=== PATIENT | female | born 1945 | race Caucasian/White ===

== ENCOUNTER 2023-06-13 10:13 | Emergency (ER) | payer MEDICARE, SELFPAY ==
[2023-06-13 10:18] VITALS: BP 194/72; PULSE 89; RESP 18; TEMP 36.7; O2SAT 97; BMI 24.0
--- NOTE | 2023-06-13 10:45 | ED.FEMALEGU ---
HPI - Female Genitourinary General Time Seen by Provider: 10:45 Date Seen: 06/13/23 Chief complaint: Urogenital Problems, Female Stated complaint: blood in urine,vaginal bleeding Time Seen by Provider: 06/13/23 10:22 Source: patient and RN notes reviewed Mode of arrival: ambulatory Limitations: no limitations History of Present Illness HPI Narrative: This 78-year-old female is coming into the ER with concern of possible blood in your urine, blood with wiping and now spotting needing to wear a pad. She is unclear if this is urinary or vaginal. She is not had a hysterectomy per report. She is obviously postmenopausal. She has had no prior episodes of this. For weeks now she is noted blood with wiping after urination. Since Monday, today is Monday, has started to have to wear a pad as she is having some spotting. She is feeling some lower abdominal discomfort like menstrual discomfort. She has had no fevers chills, has not noted any weight loss. Related Data Home Medications Medication Instructions Recorded Confirmed levothyroxine 50 mcg tablet 50 mcg PO DAILY 06/13/23 06/13/23 lisinopril 10 mg tablet 15 mg PO DAILY 06/13/23 06/13/23 metformin 1,000 mg tablet 1,000 mg PO BID 06/13/23 06/13/23 pravastatin 20 mg tablet 20 mg PO DAILY 06/13/23 06/13/23 Allergies Allergy/AdvReac Type Severity Reaction Status Date / Time No Known Drug Allergies Allergy Verified 06/13/23 10:21 Review of Systems Status of ROS: Reports: 6 or more systems reviewed and unremarkable except as noted in History and below PFSH PFSH Social History Non-prescribed substance use: denies use Exam Const: Vital Signs, click to edit/add: Vital Signs - 24 hr 06/13/23 10:18 Temperature 98.1 F Pulse Rate [Right Pulse Oximeter] 89 Respiratory Rate 18 Blood Pressure [Ri ght Upper Arm] 194/72 H Pulse Oximetry 97 Oxygen Delivery Me thod Room Air This 78-year-old female is ambulatory into the ED of her own accord, gait normal. Sclera clear, conjugate gaze, symmetrical facial function. Neck supple, no adenopathy, no thyromegaly masses or nodules. Lungs are clear, good air entry, no wheezing or crackles. CV regular rate and rhythm, no murmur, normal S1 and S2. Abdomen is soft, bowel sounds present. I do not feel any organomegaly. She has some mild discomfort in the suprapubic area. She has atrophic external genitalia without any visible signs of trauma or bleeding. There is no inguinal adenopathy. Bimanual exam reveals nontender cervix, uterus seems to be retroverted, do not appreciate enlargement but difficult to palpate. Do not feel any pelvic masses. On withdrawal of the gloved finger, note no blood. Documenting provider has reviewed patient's vital signs: yes Course Course ED Course: This 78-year-old female and I reviewed that it is important to differentiate urinary from vaginal. With the spotting I do wonder if this is vaginal. Will start with a pelvic ultrasound, may consider CT imaging as well. We will get basic lab work. We have discussed postmenopausal bleeding can be a warning sign of uterine cancer. We will make sure her hemoglobin is stable. Nursing staff has collected urinalysis. Reevaluation(s) Time of Reevaluation #1: 12:22 Reevaluation #1: Have reviewed ultrasound report with patient. She understands that she needs to proceed with endometrial biopsy in we do have a subsequent appointment set up for her. We reviewed labs, not anemic. No evidence of any significant hematuria that we need to do any visualization of the urinary system. Consultations Consultation #1: Reviewed with Dr. Springer. They can see this patient for a biopsy, we will get patient information or get her scheduled with them. Time: 11:51 Vital Signs Vital signs: Initial Vital Signs Temperature 98.1 F 06/13/23 10:18 Temperature Source Temporal Artery Scan 06/13/23 10:18 Pulse Rate 89 06/13/23 10:18 Respiratory Rate 18 06/13/23 10:18 Blood Pressure 194/72 H 06/13/23 10:18 Blood Pressure Mean 112 H 06/13/23 10:18 Blood Pressure Position Sitting 06/13/23 10:18 Pulse Oximetry 97 06/13/23 10:18 Oxygen Delivery Method Room Air 06/13/23 10:18 Vital Signs Temperature 98.1 F 06/13/23 10:18 Pulse Rate 89 06/13/23 10:18 Respiratory Rate 18 06/13/23 10:18 Blood Pressure 194/72 H 06/13/23 10:18 Pulse Oximetry 97 06/13/23 10:18 Oxygen Delivery Method Room Air 06/13/23 10:18 Temperature 98.1 F 06/13/23 10:18 Pulse Rate 89 06/13/23 10:18 Respiratory Rate 18 06/13/23 10:18 Blood Pressure 194/72 H 06/13/23 10:18 Pulse Oximetry 97 06/13/23 10:18 Oxygen Delivery Method Room Air 06/13/23 10:18 MDM - Female Genitourinary Lab Data Attestation: I reviewed the patient's lab results. Labs: Lab Results 06/13/23 06/13/23 Range/Units 10:37 10:57 WBC 7.65 (4.50-11.00) K/uL RBC 4.01 (4.00-5.20) m/uL Hgb 13.8 (12.0-16.0) gm/dL Hct 41.1 (33.0-51.0) % MCV 103 H (80-100) fL MCH 34 (26-34) pg MCHC 34 (32-36) gm/dL RDW Coeff of Yoav 13.0 (11.5-15.5) % Plt Count 258 (140-440) K/uL Neut % (Auto) 75.7 H (42.0-72.0) % Lymph % (Auto) 18.0 L (20-44) % [place] % (Auto) 4.4 (0.0-11.0) % Eos % (Auto) 1.0 (0.0-7.0) % Baso % (Auto) 0.5 (0.0-3.0) % Neut # (Auto) 5.80 (1.7-7.0) K/uL Lymph # (Auto) 1.40 (0.90-2.90) K/uL [place] # (Auto) 0.30 (0.00-0.90) K/UL Eos # (Auto) 0.08 (0.00-0.50) K/uL Baso # (Auto) 0.04 (0.00-0.30) K/uL Abs Immat Gran (auto) 0.03 (0.00-0.30) K/uL Imm/Tot Granulo (auto) 0.4 % Sodium 139 (135-149) mmol/L Potassium 4.5 (3.6-5.1) mmol/L Chloride 104 (96-114) mmol/L Carbon Dioxide 25 (20-32) mmol/L Anion Gap 10 (7-15) mEq/L BUN 18 (7-30) mg/dL Creatinine 0.8 (0.5-1.5) mg/dL Estimated Creat Clear 39.39 Estimated GFR 75 ml/min Glucose 217 H (60-115) mg/dL Calcium 9.8 (8.4-10.6) mg/dL Total Bilirubin 0.6 (0.1-1.5) mg/dL AST 46 H (12-35) U/L ALT 45 H (4-35) U/L Alkaline Phosphatase 58 (40-150) U/L Total Protein 7.7 (6.0-8.3) g/dL Albumin 4.7 (3.3-5.0) g/dL Urine Color Yellow (Yellow) Urine Appearance Clear (Clear) Urine pH 5.5 (5.0-8.5) Ur Specific [place] <= 1.005 (1.000-1.030) Urine Protein Negative (Negative) Urine Glucose (UA) Negative (Negative) Urine Ketones Negative (Negative) Urine Blood 2+ A (Negative) Urine Nitrite Negative (Negative) Urine Bilirubin Negative (Negative) Urine Urobilinogen 0.2 (0.2-1.0) Ur Leukocyte Esterase 1+ A (Negative) Urine RBC 0-2 (0-2) Urine WBC 0-2 (0-5) Ur Squamous Epith Cells Few (None-Few) Urine Bacteria None (None) Imaging Data US pelvis: Attestation: I have reviewed the pertinent imaging results. Radiologist's impression: Patient: SEPIDEH PEREZ Facility:?[facility] Patient ID:?[id number] Site Patient ID:?[id number]. Site :?1945 Study:?US Pelvis -06/13/2023 11:27:21 AM Ordering Physician:?ED Final Report: INDICATION: Postmenopausal bleeding COMPARISON: none TECHNIQUE: 2D archibald scale and color Doppler images were acquired of the pelvis using a transabdominal and transvaginal approach. FINDINGS: Sonographic images demonstrate a normal size and smooth outer contour of the uterus. Uterus measures 8.4 cm in length by 3.7 cm in AP diameter by 4.1 cm in transverse dimension. Incidental calcification noted within the uterine fundus. The endometrial lining measures 7 mm in composite thickness. What appears to be the left ovary measures 1.4 x 0.8 x 1.0 cm. The right ovary is not visualized. No suspicious mass in the pelvis or abnormal vascularity. IMPRESSION: Endometrial thickness 7 millimeters. Dictated by Corbin Combs MD @ 06/13/2023 11:31:34 AM (Electronic Signature) Discharge Plan Discharge Clinical Impression: Post-menopausal bleeding Patient Disposition: Home, Self-Care Condition: Stable Instructions: Endometrial Biopsy (DC) Additional Instructions: Follow up appointment is scheduled at the [facility] on 06/14 with an 11:15am appointment time. Please arrive at 11:05am to check in and complete paperwork. If you have any questions or need to reschedule, please call [phone]. [address] [place] [address] If you develop heavy bleeding, going through a pad consecutively over 2-3 hours, do need to seek re-evaluation. Otherwise, it is imperative that you follow-up to have the endometrial biopsy done. Activity Level: Activity as Tolerated Prescriptions: No Action levothyroxine 50 mcg tablet 50 mcg PO DAILY metformin 1,000 mg tablet 1,000 mg PO BID lisinopril 10 mg tablet 15 mg PO DAILY pravastatin 20 mg tablet 20 mg PO DAILY Follow Up/Referrals: Generic,Amb Provider [Primary Care Provider] - Stand Alone Forms: [employer] Info Instructions
[2023-06-13 10:46] LABS: Appearance Urine Clear (Clear); Bilirubin Urine Negative (Negative); Blood Urine 2+ (Negative); Color Urine Yellow (Yellow); Glucose Urine Negative (Negative); Ketones Urine Negative (Negative); Leukocyte Esterase Urine 1+ (Negative); Nitrite Urine Negative (Negative); Protein Urine Negative (Negative); Specific Gravity Urine <= 1.005 (1.000-1.030); Urobilinogen Urine 0.2 (0.2-1.0); pH Urine 5.5 (5.0-8.5)
--- NOTE | 2023-06-13 10:51 | US_ITS ---
Patient: SEPIDEH PEREZ Facility:?[facility] Patient ID:?[id number] Site Patient ID:?[id number]. Site :?1945 Study:?US-Pelvis -06/13/2023 11:27:21 AM Ordering Physician:?ED Final Report: INDICATION: Postmenopausal bleeding COMPARISON: none TECHNIQUE: 2D archibald scale and color Doppler images were acquired of the pelvis using a transabdominal and transvaginal approach. FINDINGS: Sonographic images demonstrate a normal size and smooth outer contour of the uterus. Uterus measures 8.4 cm in length by 3.7 cm in AP diameter by 4.1 cm in transverse dimension. Incidental calcification noted within the uterine fundus. The endometrial lining measures 7 mm in composite thickness. What appears to be the left ovary measures 1.4 x 0.8 x 1.0 cm. The right ovary is not visualized. No suspicious mass in the pelvis or abnormal vascularity. IMPRESSION: Endometrial thickness 7 millimeters. Dictated by Corbin Combs MD @ 06/13/2023 11:31:34 AM Signed by:?Corbin Combs MD @06/13/2023 11:31:34 AM (Electronic Signature)
[2023-06-13 11:07] LABS: RBC Urine 0-2 (0-2); WBC Urine 0-2 (0-5)
[2023-06-13 11:08] LABS: Basophils Absolute Auto 0.04 K/uL (0.00-0.30); Basophils Percent Auto 0.5 % (0.0-3.0); Eosinophils Absolute Auto 0.08 K/uL (0.00-0.50); Hematocrit 41.1 % (33.0-51.0); Hemoglobin* 13.8 gm/dL (12.0-16.0); Immature Granulocytes Abs Auto 0.03 K/uL (0.00-0.30); Immature Granulocytes Pct Auto 0.4 %; Mean Corpuscular HGB Conc 34 gm/dL (32-36); Mean Corpuscular Hemoglobin 34 pg (26-34); Mean Corpuscular Volume 103 fL (80-100); Monocytes Percent Auto 4.4 % (0.0-11.0); Neutrophils Percent Auto 75.7 % (42.0-72.0); Platelet Count* 258 K/uL (140-440); Red Blood Count 4.01 m/uL (4.00-5.20); White Blood Count* 7.65 K/uL (4.50-11.00)
[2023-06-13 11:08] LABS: Squamous Epithelial Cell Urine Few (None-Few)
[2023-06-13 11:33] LABS: Albumin* 4.7 g/dL (3.3-5.0); Chloride* 104 mmol/L (96-114); Potassium* 4.5 mmol/L (3.6-5.1); Sodium* 139 mmol/L (135-149)
[2023-06-13 11:35] LABS: Anion Gap 10 mEq/L (7-15); Bilirubin Total* 0.6 mg/dL (0.1-1.5); Carbon Dioxide* 25 mmol/L (20-32); Creatinine* 0.8 mg/dL (0.5-1.5); Est. Creatinine Clearance* 39.39; Estimated Glomerular Filt Rate 75 ml/min
[2023-06-13 11:36] LABS: Alanine Aminotransferase* 45 U/L (4-35); Alkaline Phosphatase* 58 U/L (40-150); Aspartate Amino Transferase* 46 U/L (12-35); Blood Urea Nitrogen* 18 mg/dL (7-30); Calcium* 9.8 mg/dL (8.4-10.6); Glucose* 217 mg/dL (60-115); Total Protein* 7.7 g/dL (6.0-8.3)
[2023-06-13 11:41] LABS: Slide Review Reflex No
== END 2023-06-13 12:46 | disposition home or self-care (01) ==
PROVIDERS: Emergency Provider Family Medicine
DX: N95.0 Postmenopausal bleeding (principal); R31.9 Hematuria, unspecified; Z13.6 Encounter for screening for cardiovascular disorders
CPT/HCPCS: 36415; 76856; 80053; 81001; 85025; 87086; 93976; 99283; 99284

== ENCOUNTER 2023-07-06 08:42 | Outpatient (CLI) | payer MEDICARE, SELFPAY ==
--- NOTE | 2023-07-06 09:00 | XR_ITS ---
Patient: SEPIDEH PEREZ Facility:?[facility] Patient ID:?[id number] Site Patient ID:?[id number]. Site :?1945 Study:?XRay-Chest 2 view-07/06/2023 9:01:27 AM Ordering Physician:Jessica Almanzar Final Report: INDICATION: Endometrial cancer TECHNIQUE: Chest 2 views COMPARISON: None FINDINGS: Cardiovascular and mediastinum: Heart size and vasculature are normal in caliber and appearance. Lungs and pleural spaces: Lungs are clear. No sign of infiltrate or mass. No sign of pleural effusion. No pneumothorax. Bones and soft tissues: No significant findings. IMPRESSION: Normal chest films. Dictated by Corbin Combs MD @ 07/06/2023 11:14:41 AM Signed by:?Corbin Combs MD @07/06/2023 11:14:41 AM (Electronic Signature)
== END 2023-07-06 08:43 | disposition home or self-care (01) ==
PROVIDERS: Visit Provider Registered Nurse
DX: C54.1 Malignant neoplasm of endometrium (principal)
CPT/HCPCS: 71046

== ENCOUNTER 2023-10-09 14:19 | Emergency (ER) | payer MEDICARE, SELFPAY ==
[2023-10-09] VITALS (8 sets, daily range): BP systolic 110–148; BP diastolic 76–92; PULSE 104–113; RESP 14–18; TEMP 36.9; O2SAT 94–98; BMI 24.1
--- NOTE | 2023-10-09 15:38 | ED.GENADULT ---
HPI - General Adult General Time Seen by Provider: 15:38 <Anne Marie Recio MD - Last Filed: 10/10/23 08:55> Date Seen: 10/09/23 <Anne Marie Recio MD - Last Filed: 10/10/23 08:55> Chief complaint: Unspecified Complaint, Adult <Anne Marie Recio MD - Last Filed: 10/10/23 08:55> Stated complaint: blood clot in lung <Anne Marie Recio MD - Last Filed: 10/10/23 08:55> Time Seen by Provider: 10/09/23 15:37 <Anne Marie Recio MD - Last Filed: 10/10/23 08:55> Source: patient, RN notes reviewed and old records reviewed <Anne Marie Recio MD - Last Filed: 10/10/23 08:55> Mode of arrival: ambulatory <Anne Marie Recio MD - Last Filed: 10/10/23 08:55> Limitations: no limitations <Anne Marie Recio MD - Last Filed: 10/10/23 08:55> History of Present Illness HPI narrative: this 78-year-old female was told to come in [facility] after she had an outpatient CT showing large clot burden pulmonary embolism with a saddle component. There are findings of right heart strain is evidence by an elevated RV/ LV ratio 1.5 and leftward deviation of the interventricular septum. Right middle lobe opacity probably a small pulmonary infarct. Minimal basilar atelectasis. Very small right effusion. Postoperative changes related to the left breast and left axilla. atrophic right kidney with her renal cortical scarring. She notes that she developed a little irritative cough about a week or so ago, did not respond to cold medicine. She started noticing dyspnea on exertion. She admits she has chest pressure right now. Patient states that she was at home alone, staff was attempting to get a hold of her . They were finally successful in getting him home and she was brought to the ER. She She states she was never advised to consider calling 911 with these findings. Our staff here were completely unaware of the severity of her pulmonary embolism. I was able to get in to the epic chart and print report out. Once I was able to read this report, I did alert our ED staff on the severity of her pulmonary embolus. <Anne Marie Recio MD - Last Filed: 10/10/23 08:55> Related Data Home medications: Home Medications ?Medication ?Instructions ?Recorded ?Confirmed levothyroxine 50 mcg tablet 50 mcg PO DAILY 06/13/23 06/15/23 lisinopril 10 mg tablet 15 mg PO DAILY 06/13/23 06/15/23 metformin 1,000 mg tablet 1,000 mg PO BID 06/13/23 06/15/23 pravastatin 20 mg tablet 20 mg PO DAILY 06/13/23 06/15/23 aspirin 81 mg tablet,delayed 81 mg PO QDAY 06/15/23 06/15/23 release multivitamin (Daily Multi-Vitamin 1 tab PO QAM 06/15/23 06/15/23 tablet) <Anne Marie Recio MD - Last Filed: 10/10/23 08:55> Allergies/adverse reactions: Allergies Allergy/AdvReac Type Severity Reaction Status Date / Time No Known Drug Allergies Allergy Verified 06/15/23 10:32 <Anne Marie Recio MD - Last Filed: 10/10/23 08:55> Review of Systems Status of ROS: Reports: 6 or more systems reviewed and unremarkable except as noted in History and below <Anne Marie Recio MD - Last Filed: 10/10/23 08:55> [facility] Medical History: Medical History (Updated 10/09/23 @ 17:11 by Alexis Fragoso MD) Hypothyroid ?E03.9 - Hypothyroidism, unspecified (ICD-10) Type 2 diabetes mellitus ?E11.9 - Type 2 diabetes mellitus without complications (ICD-10) Postmenopausal bleeding ?N95.0 - Postmenopausal bleeding (ICD-10) Endometrial carcinoma ?C54.1 - Malignant neoplasm of endometrium (ICD-10) Breast cancer ?C50.919 - Malignant neoplasm of unspecified site of unspecified female breast (ICD-10) <Anne Marie Recio MD - Last Filed: 10/10/23 08:55> Surgical History: Surgical History (Updated 10/09/23 @ 15:51 by Anne Marie Recio MD) H/O total hysterectomy with bilateral salpingo-oophorectomy (BSO) ?Z90.710 - Acquired absence of both cervix and uterus (ICD-10) ?Z90.722 - Acquired absence of ovaries, bilateral (ICD-10) ?Z90.79 - Acquired absence of other genital organ(s) (ICD-10) H/O knee surgery ?Z98.890 - Other specified postprocedural states (ICD-10) History of appendectomy ?Z90.49 - Acquired absence of other specified parts of digestive tract (ICD-10) <Anne Marie Recio MD - Last Filed: 10/10/23 08:55> Family History: Family History Mother Heart disease Stroke Sister Heart disease Stroke <Anne Marie Recio MD - Last Filed: 10/10/23 08:55> Social History: Social History Narrative: [place] [facility]. Retired in 2009. Completed high school. . Not sexually active. Smoking Status: Smoker, status unknown Non-prescribed substance use: denies use <Anne Marie Recio MD - Last Filed: 10/10/23 08:55> Exam Const: Vital Signs, click to edit/add: Vital Signs - 24 hr 10/09/23 14:32 10/09/23 15:38 10/09/23 15:41 Temperature 98.4 F Pulse Rate 112 H Pulse Rate [Right Pulse Oximeter] 113 H Respiratory Rate 18 16 Blood Pressure 138/91 H Blood Pressure [Ri ght Upper Arm] 147/83 H Pulse Oximetry 97 98 98 Oxygen Delivery Me thod Room Air 10/09/23 16:01 10/09/23 16:31 10/09/23 17:01 Temperature Pulse Rate 106 H 107 H 104 H Pulse Rate [Right Pulse Oximeter] Respiratory Rate 14 18 16 Blood Pressure 110/76 148/81 H 117/83 Blood Pressure [Ri ght Upper Arm] Pulse Oximetry 94 95 95 Oxygen Delivery Me thod 10/09/23 17:31 10/09/23 17:38 Temperature 98.4 F Pulse Rate 106 H Pulse Rate [Right Pulse Oximeter] Respiratory Rate 14 14 Blood Pressure 111/92 H Blood Pressure [Ri ght Upper Arm] Pulse Oximetry 98 Oxygen Delivery Me thod Room Air This is a very pleasant 78-year-old female that is seen in exam room 4. She is alert, interactive, no apparent distress. Able to speak in complete sentences. Sclera clear, face atraumatic, symmetrical facial function. Lungs are clear, good air entry, wheezing crackles. CV is regular but fast, no murmur, normal S1-S2, no S3-S4. Abdomen is soft. She has no lower extremity edema, calves are nontender. Patient was ambulatory into the ED of her own accord. <Anne Marie Recio MD - Last Filed: 10/10/23 08:55> Vital Signs, click to edit/add: Vital Signs - 24 hr 10/09/23 14:32 10/09/23 15:38 10/09/23 15:41 Temperature 98.4 F Pulse Rate 112 H Pulse Rate [Right Pulse Oximeter] 113 H Respiratory Rate 18 16 Blood Pressure 138/91 H Blood Pressure [Ri ght Upper Arm] 147/83 H Pulse Oximetry 97 98 98 Oxygen Delivery Me thod Room Air 10/09/23 16:01 10/09/23 16:31 10/09/23 17:01 Temperature Pulse Rate 106 H 107 H 104 H Pulse Rate [Right Pulse Oximeter] Respiratory Rate 14 18 16 Blood Pressure 110/76 148/81 H 117/83 Blood Pressure [Ri ght Upper Arm] Pulse Oximetry 94 95 95 Oxygen Delivery Me thod 10/09/23 17:31 10/09/23 17:38 Temperature 98.4 F Pulse Rate 106 H Pulse Rate [Right Pulse Oximeter] Respiratory Rate 14 14 Blood Pressure 111/92 H Blood Pressure [Ri ght Upper Arm] Pulse Oximetry 98 Oxygen Delivery Me thod Room Air <Alexis Fragoso MD - Last Filed: 10/09/23 18:19> Documenting provider has reviewed patient's vital signs: yes <Anne Marie Recio MD - Last Filed: 10/10/23 08:55> Course Course ED Course: with this CT report, patient is going to get the PE heparin protocol. We will get appropriate labs. She will get an EKG, be on cardiac monitoring and pulse oximetry. I will contact the director of occupational health at [facility] or the PE team at an appropriate institution. <Anne Marie Recio MD - Last Filed: 10/10/23 08:55> Reevaluation(s) Time of Reevaluation #1: 16:22 <Anne Marie Recio MD - Last Filed: 10/10/23 08:55> Reevaluation #1: Patient is on her IV heparin. She understands that she will be going to the unit at [facility], plan will be for a suction thrombectomy. She thought that they might have to open her chest, reviewed that this is not the case. We reviewed how they go in through vascular access. She was happy to hear that. She wanted to know how long she might be in the hospital. Reviewed with her that I do not know that information. She remains hemodynamically stable. Awaiting her labs. Awaiting her bilateral lower extremity ultrasound. We will not hold patient here to have the ultrasound done if she is able to transfer. <Anne Marie Recio MD - Last Filed: 10/10/23 08:55> Time of Reevaluation #2: 17:40 <Alexis Fragoso MD - Last Filed: 10/09/23 18:19> Reevaluation #2: Bilateral lower extremity ultrasound with extensive bilateral DVT. Called [facility] transfer center to message accepting provider about this result. No change in treatment at this point but may need to consider IVC filter. Patient otherwise remained stable. <Alexis Fragoso MD - Last Filed: 10/09/23 18:19> Consultations Consultation #1: Did speak with the ICU physician Dr. Johnson. He is able to pull up the imaging. They did conference in Dr. Sanchez. While we were talking, I did pull up her medical records. She had a lumpectomy and MediPort placement, lumpectomy on the left on 09/20/2023. She had a hysterectomy on 08/31/2023. They did not want her to have lytics given the hysterectomy. He was not is worried about the lumpectomy or the MediPort But they hysterectomy certainly could pose complications. There where that I do have her on IV heparin protocol for PE. They do want her to come up for offering of suction thrombectomy. Dr. Johnson is accepting her to the ICU. We will await call from staff at [facility] with bed acceptance. Will continue to complete workup, have ordered bilateral venous ultrasound and will see if we can get this done prior to her transfer. Will not villegas here to await this imaging however. <Anne Marie Recio MD - Last Filed: 10/10/23 08:55> Time: 15:54 <Anne Marie Recio MD - Last Filed: 10/10/23 08:55> Vital Signs Vital signs: Initial Vital Signs Temperature 98.4 F 10/09/23 14:32 Temperature Source Temporal Artery Scan 10/09/23 14:32 Pulse Rate 113 H 10/09/23 14:32 Respiratory Rate 18 10/09/23 14:32 Blood Pressure 147/83 H 10/09/23 14:32 Blood Pressure Mean 104 10/09/23 14:32 Blood Pressure Position Sitting 10/09/23 14:32 Pulse Oximetry 97 10/09/23 14:32 Oxygen Delivery Method Room Air 10/09/23 14:32 Vital Signs Temperature 98.4 F 10/09/23 14:32 Pulse Rate 113 H 10/09/23 14:32 Respiratory Rate 18 10/09/23 14:32 Blood Pressure 147/83 H 10/09/23 14:32 Pulse Oximetry 97 10/09/23 14:32 Oxygen Delivery Method Room Air 10/09/23 14:32 Temperature 98.4 F 10/09/23 17:38 Pulse Rate 106 H 10/09/23 17:31 Respiratory Rate 14 10/09/23 17:38 Blood Pressure 111/92 H 10/09/23 17:31 Pulse Oximetry 98 10/09/23 17:31 Oxygen Delivery Method Room Air 10/09/23 17:31 <Anne Marie Recio MD - Last Filed: 10/10/23 08:55> Initial Vital Signs Temperature 98.4 F 10/09/23 14:32 Temperature Source Temporal Artery Scan 10/09/23 14:32 Pulse Rate 113 H 10/09/23 14:32 Respiratory Rate 18 10/09/23 14:32 Blood Pressure 147/83 H 10/09/23 14:32 Blood Pressure Mean 104 10/09/23 14:32 Blood Pressure Position Sitting 10/09/23 14:32 Pulse Oximetry 97 10/09/23 14:32 Oxygen Delivery Method Room Air 10/09/23 14:32 Vital Signs Temperature 98.4 F 10/09/23 14:32 Pulse Rate 113 H 10/09/23 14:32 Respiratory Rate 18 10/09/23 14:32 Blood Pressure 147/83 H 10/09/23 14:32 Pulse Oximetry 97 10/09/23 14:32 Oxygen Delivery Method Room Air 10/09/23 14:32 Temperature 98.4 F 10/09/23 17:38 Pulse Rate 106 H 10/09/23 17:31 Respiratory Rate 14 10/09/23 17:38 Blood Pressure 111/92 H 10/09/23 17:31 Pulse Oximetry 98 10/09/23 17:31 Oxygen Delivery Method Room Air 10/09/23 17:31 <Alexis Fragoso MD - Last Filed: 10/09/23 18:19> Medications Administered Medications: Discontinued Medications Generic Name Dose Route Start Last Admin Trade Name Freq PRN Reason Stop Dose Admin Heparin Sodium (Porcine) 4,900 unit 10/09/23 15:39 10/09/23 16:05 Heparin 5,000 Unit/0.5 Ml Inj 80 unit/kg (4900 unit) 10/09/23 15:40 4,900 unit IVP Administration ONCE ONE Heparin Sodium/Dextrose 25,000 unit in 500 mls @ 22 mls/hr 10/09/23 15:45 10/09/23 16:04 Heparin IV 1,100 unit/hr .[id number] ERIBERTO 22 mls/hr Administration Protocol Per Protocol <Anne Marie Recio MD - Last Filed: 10/10/23 08:55> Discontinued Medications Generic Name Dose Route Start Last Admin Trade Name Freq PRN Reason Stop Dose Admin Heparin Sodium (Porcine) 4,900 unit 10/09/23 15:39 10/09/23 16:05 Heparin 5,000 Unit/0.5 Ml Inj 80 unit/kg (4900 unit) 10/09/23 15:40 4,900 unit IVP Administration ONCE ONE Heparin Sodium/Dextrose 25,000 unit in 500 mls @ 22 mls/hr 10/09/23 15:45 10/09/23 16:04 Heparin IV 1,100 unit/hr .[id number] ERIBERTO 22 mls/hr Administration Protocol Per Protocol <Alexis Fragoso MD - Last Filed: 10/09/23 18:19> Medical Decision Making Medical Records Medical records reviewed: Yes I reviewed the patient's medical records <Anne Marie Recio MD - Last Filed: 10/10/23 08:55> Lab Data Lab results reviewed: Yes I reviewed the patient's lab results <Anne Marie Recio MD - Last Filed: 10/10/23 08:55> Labs: Lab Results 10/09/23 10/09/23 10/09/23 Range/Units 15:45 15:45 15:45 WBC 10.05 (4.50-11.00) K/uL RBC 3.72 L (4.00-5.20) m/uL Hgb 12.3 (12.0-16.0) gm/dL Hct 37.9 (33.0-51.0) % MCV 102 H (80-100) fL MCH 33 (26-34) pg MCHC 33 (32-36) gm/dL RDW Coeff of Yoav 12.5 (11.5-15.5) % Plt Count 286 (140-440) K/uL Neut % (Auto) 80.4 H (42.0-72.0) % Lymph % (Auto) 10.4 L (20-44) % Tillman % (Auto) 7.9 (0.0-11.0) % Eos % (Auto) 0.7 (0.0-7.0) % Baso % (Auto) 0.3 (0.0-3.0) % Neut # (Auto) 8.10 H (1.7-7.0) K/uL Lymph # (Auto) 1.00 (0.90-2.90) K/uL Tillman # (Auto) 0.80 (0.00-0.90) K/UL Eos # (Auto) 0.07 (0.00-0.50) K/uL Baso # (Auto) 0.03 (0.00-0.30) K/uL Abs Immat Gran (auto) 0.03 (0.00-0.30) K/uL Imm/Tot Granulo (auto) 0.3 % INR 1.05 (0.91-1.10) APTT 34 H (23-33) Seconds D-Dimer Quant (PE/DVT) Cancelled 6.24 H VBG pH 7.382 (7.32-7.43) VBG pCO2 45 (40-50) mmHG VBG pO2 < 30.1 (25-47) mmHG VBG HCO3 27 (21-28) mmol/L Sodium 136 (135-149) mmol/L Potassium 4.3 (3.6-5.1) mmol/L Chloride 103 (96-114) mmol/L Carbon Dioxide 25 (20-32) mmol/L Anion Gap 8 (7-15) mEq/L BUN 13 (7-30) mg/dL Creatinine 0.9 (0.5-1.5) mg/dL Estimated Creat Clear 37.74 Estimated GFR 65 ml/min Glucose 183 H (60-115) mg/dL Lactate Cancelled 1.1 Calcium 9.4 (8.4-10.6) mg/dL Total Bilirubin 0.9 (0.1-1.5) mg/dL AST 22 (12-35) U/L ALT 13 (4-35) U/L Alkaline Phosphatase 67 (40-150) U/L Troponin I < 0.01 L (0.01-0.04) ng/mL NT-Pro-B Natriuret Pep 1970 pg/mL Total Protein 7.5 (6.0-8.3) g/dL Albumin 4.4 (3.3-5.0) g/dL <Anne Marie Recio MD - Last Filed: 10/10/23 08:55> Lab Results 10/09/23 10/09/23 10/09/23 Range/Units 15:45 15:45 15:45 WBC 10.05 (4.50-11.00) K/uL RBC 3.72 L (4.00-5.20) m/uL Hgb 12.3 (12.0-16.0) gm/dL Hct 37.9 (33.0-51.0) % MCV 102 H (80-100) fL MCH 33 (26-34) pg MCHC 33 (32-36) gm/dL RDW Coeff of Yoav 12.5 (11.5-15.5) % Plt Count 286 (140-440) K/uL Neut % (Auto) 80.4 H (42.0-72.0) % Lymph % (Auto) 10.4 L (20-44) % Tillman % (Auto) 7.9 (0.0-11.0) % Eos % (Auto) 0.7 (0.0-7.0) % Baso % (Auto) 0.3 (0.0-3.0) % Neut # (Auto) 8.10 H (1.7-7.0) K/uL Lymph # (Auto) 1.00 (0.90-2.90) K/uL Tillman # (Auto) 0.80 (0.00-0.90) K/UL Eos # (Auto) 0.07 (0.00-0.50) K/uL Baso # (Auto) 0.03 (0.00-0.30) K/uL Abs Immat Gran (auto) 0.03 (0.00-0.30) K/uL Imm/Tot Granulo (auto) 0.3 % INR 1.05 (0.91-1.10) APTT 34 H (23-33) Seconds D-Dimer Quant (PE/DVT) Cancelled 6.24 H VBG pH 7.382 (7.32-7.43) VBG pCO2 45 (40-50) mmHG VBG pO2 < 30.1 (25-47) mmHG VBG HCO3 27 (21-28) mmol/L Sodium 136 (135-149) mmol/L Potassium 4.3 (3.6-5.1) mmol/L Chloride 103 (96-114) mmol/L Carbon Dioxide 25 (20-32) mmol/L Anion Gap 8 (7-15) mEq/L BUN 13 (7-30) mg/dL Creatinine 0.9 (0.5-1.5) mg/dL Estimated Creat Clear 37.74 Estimated GFR 65 ml/min Glucose 183 H (60-115) mg/dL Lactate Cancelled 1.1 Calcium 9.4 (8.4-10.6) mg/dL Total Bilirubin 0.9 (0.1-1.5) mg/dL AST 22 (12-35) U/L ALT 13 (4-35) U/L Alkaline Phosphatase 67 (40-150) U/L Troponin I < 0.01 L (0.01-0.04) ng/mL NT-Pro-B Natriuret Pep 1970 pg/mL Total Protein 7.5 (6.0-8.3) g/dL Albumin 4.4 (3.3-5.0) g/dL <Alexis Fragoso MD - Last Filed: 10/09/23 18:19> ECG Data Attestation: I personally reviewed and interpreted this ECG as follows: ( Sinus tachycardia, 106 beats per minute. Poor R-wave progression anterior precordial leads without any definitive ST segment change or T-wave abnormality. Flipped T-waves in lead 3 and AVF but normal in lead 2.) <Anne Marie Recio MD - Last Filed: 10/10/23 08:55> Prior ECG tracings: not available for review <Anne Marie Recio MD - Last Filed: 10/10/23 08:55> Discharge Plan Discharge Clinical Impression: Acute saddle pulmonary embolism, Deep vein thrombosis (DVT) of both lower extremities <Anne Marie Recio MD - Last Filed: 10/10/23 08:55> Patient Disposition: Xfer [facility] <Anne Marie Recio MD - Last Filed: 10/10/23 08:55> Discharge Location: [facility] <Anne Marie Recio MD - Last Filed: 10/10/23 08:55> Prescriptions: No Action aspirin 81 mg tablet,delayed release (DR/EC) 81 mg PO QDAY multivitamin [Daily Multi-Vitamin] Tablet 1 tab PO QAM levothyroxine 50 mcg tablet 50 mcg PO DAILY metformin 1,000 mg tablet 1,000 mg PO BID lisinopril 10 mg tablet 15 mg PO DAILY pravastatin 20 mg tablet 20 mg PO DAILY <Anne Marie Recio MD - Last Filed: 10/10/23 08:55> Stand Alone Forms: MyHealth Info Instructions <Anne Marie Recio MD - Last Filed: 10/10/23 08:55>
[2023-10-09 15:57] LABS: HCO3 VBG 27 mmol/L (21-28); Lactate* 1.1 mmol/L (0.5-1.9); PCO2 VBG 45 mmHG (40-50); PO2 VBG < 30.1 mmHG (25-47); pH VBG 7.382 (7.32-7.43)
[2023-10-09 16:02] LABS: Basophils Absolute Auto 0.03 K/uL (0.00-0.30); Basophils Percent Auto 0.3 % (0.0-3.0); Eosinophils Absolute Auto 0.07 K/uL (0.00-0.50); Eosinophils Percent Auto 0.7 % (0.0-7.0); Hematocrit 37.9 % (33.0-51.0); Hemoglobin* 12.3 gm/dL (12.0-16.0); Immature Granulocytes Abs Auto 0.03 K/uL (0.00-0.30); Immature Granulocytes Pct Auto 0.3 %; Lymphocytes Percent Auto 10.4 % (20-44); Mean Corpuscular HGB Conc 33 gm/dL (32-36); Mean Corpuscular Hemoglobin 33 pg (26-34); Mean Corpuscular Volume 102 fL (80-100); Monocytes Percent Auto 7.9 % (0.0-11.0); Neutrophils Percent Auto 80.4 % (42.0-72.0); Platelet Count* 286 K/uL (140-440); RDW Coefficient of Variation % 12.5 % (11.5-15.5); Red Blood Count 3.72 m/uL (4.00-5.20); White Blood Count* 10.05 K/uL (4.50-11.00)
[2023-10-09 16:04] LABS: Slide Review Reflex No
[2023-10-09] MEDS: HEPARIN 25,000 UNIT/500 ML BAG 22 UNIT IV (16:04)
[2023-10-09] MEDS: HEPARIN 5,000 UNIT/0.5 ML INJ 4900 UNIT IVP (16:05)
--- NOTE | 2023-10-09 16:07 | CRLHL7_ITS ---
For Patients: As a result of the Century Cures Act, medical imaging exams and procedure reports are released immediately into your electronic medical record. You may view this report before your referring provider. If you have questions, please contact your health care provider. INDICATION: Saddle pulmonary embolus, evaluate for source TECHNIQUE: Ultrasound venous duplex lower extremity bilateral. Compression venous exam was performed using archibald-scale, color Doppler, and spectral Doppler imaging. COMPARISON: None. FINDINGS: Extensive deep venous thrombosis throughout the right lower extremity veins as well as the left lower extremity veins extending from the common femoral through the popliteal and proximal posterior tibial, peroneal veins. IMPRESSION: Extensive deep venous thrombosis within the right greater than left lower extremity veins consistent with history of recently diagnosed saddle pulmonary embolus. Findings were discussed with Dr. Serna at 5:49 p.m. October 09, 2023 Dictated by Milan Ibarra MD @ 10/09/2023 5:55:09 PM (Electronically Signed)
[2023-10-09 16:15] LABS: Albumin* 4.4 g/dL (3.3-5.0)
[2023-10-09 16:16] LABS: Chloride* 103 mmol/L (96-114); Partial Thromboplastin Time* 34 Seconds (23-33); Potassium* 4.3 mmol/L (3.6-5.1); Sodium* 136 mmol/L (135-149)
[2023-10-09 16:17] LABS: INR 1.05 (0.91-1.10); Prothrombin Time 14.4 Seconds
[2023-10-09 16:18] LABS: Anion Gap 8 mEq/L (7-15); Aspartate Amino Transferase* 22 U/L (12-35); Bilirubin Total* 0.9 mg/dL (0.1-1.5); Carbon Dioxide* 25 mmol/L (20-32); Creatinine* 0.9 mg/dL (0.5-1.5); Est. Creatinine Clearance* 37.74; Estimated Glomerular Filt Rate 65 ml/min; Total Protein* 7.5 g/dL (6.0-8.3)
[2023-10-09 16:19] LABS: Alanine Aminotransferase* 13 U/L (4-35); Alkaline Phosphatase* 67 U/L (40-150); Blood Urea Nitrogen* 13 mg/dL (7-30); Calcium* 9.4 mg/dL (8.4-10.6); Glucose* 183 mg/dL (60-115)
[2023-10-09 16:32] LABS: D Dimer Quantitative* 6.24 ug/ml (0.00-0.50)
[2023-10-09 16:36] LABS: NT Pro B Type NatriureticPept* 1970 pg/mL; Troponin I* < 0.01 ng/mL (0.01-0.04)
== END 2023-10-09 17:50 | disposition short-term general hospital (02) ==
PROVIDERS: Emergency Provider Family Medicine
DX: I26.02 Saddle embolus of pulmonary artery with acute cor pulmonale (principal); I82.403 Acute embolism and thrombosis of unspecified deep veins of lower extremity, bilateral
CPT/HCPCS: 36415; 80053; 82803; 83605; 83880; 84484; 85025; 85379; 85610; 85730; 93005; 93970; 94761; 99285; 99291; J1644

== ENCOUNTER 2024-06-06 13:15 | Outpatient (CLI) | payer MEDICARE, SELFPAY ==
--- NOTE | 2024-06-06 13:30 | CRLHL7_ITS ---
For Patients: As a result of the Century Cures Act, medical imaging exams and procedure reports are released immediately into your electronic medical record. You may view this report before your referring provider. If you have questions, please contact your health care provider. EXAM: FDG PET-CT Skull Base to Thighs CLINICAL INFORMATION: 79-year-old woman with history of endometrial cancer diagnosed 06/15/2023 on Keytruda and left breast invasive ductal carcinoma diagnosed 08/18/2023 status post left breast lumpectomy and sentinel lymph node biopsy 09/20/2023, most recently letrozole. Subsequent treatment response. TECHNIQUE: Radiopharmaceutical: 18F-fluorodeoxyglucose (18F-FDG) Dose: 11.5 MilliCurie. Blood glucose: 104 mg/dL. Image acquisition: At approximately 60 minutes following IV tracer administration via a right antecubital vein, positron emission tomography was performed from the skull base through the mid thigh. Non-contrast low-dose helical CT imaging was performed over the same range without breath-hold for attenuation correction of PET images and anatomic correlation; it is neither sufficient, nor should it be substituted for diagnostic purposes. COMPARISON: CT chest 10/09/2023. FINDINGS: Mediastinal blood pool FDG uptake: SUVMax 3.4 (image 102) Liver background parenchymal FDG uptake: SUVMax 4.1 (image 142) HEAD AND NECK: Focal FDG uptake in bilateral cervical lymph nodes that are subcentimeter in short axis, likely reactive. CHEST: Ports and devices: Right internal jugular port catheter with the tip terminating in right atrium. Lungs: No abnormal FDG uptake. Pleura: No abnormal FDG uptake. Thoracic lymph Nodes: Moderately FDG avid mediastinal lymph nodes subcentimeter in short axis and FDG avid bilateral hilar lymph nodes, including: *1.5 X 0.7 Cm right lower paratracheal node SUVMax 7.8 (Image 95) *1.3 X 0.5 Cm left subcarinal node SUVMax 5.2 (Image 100) *Right hilar lymph node SUV max 5.8 (image 108). *Left hilar lymph node SUV max 5.8 (image 108). Mediastinum: No abnormal FDG uptake. Coronary artery calcifications. Atherosclerotic calcifications of the thoracic aorta. Breasts/Chest Wall: Prior left breast lumpectomy, with faint FDG uptake below blood pool SUV max 2.9 (image 97). No abnormal increased FDG uptake. ABDOMEN/PELVIS: Liver/biliary system: No abnormal FDG uptake. Cholelithiasis. Pancreas: No abnormal FDG uptake. Spleen: No abnormal FDG uptake. Scattered calcified splenic granulomas. Adrenal Glands: No abnormal FDG uptake. Kidneys: No abnormal FDG uptake. Irregular morphology of the right kidney, with substantial cortical thinning of the right upper pole and right interpolar region. Punctate non-obstructive calyceal stone in the right kidney. Bowel: Diffuse bowel loop uptake likely secondary to metformin. Colonic diverticulosis. Mesentery, Omentum and Peritoneum: No abnormal FDG uptake. Atherosclerotic calcifications. Pelvic Organs: No abnormal FDG uptake. Hysterectomy. Abdominopelvic lymph Nodes: No abnormal FDG uptake. Musculoskeletal: No abnormal FDG uptake. Multilevel degenerative changes in the spine. IMPRESSION: 1. Postoperative changes from left lumpectomy. No evidence of metabolically active recurrent disease. 2. Moderately FDG avid nonenlarged mediastinal lymph nodes and moderately FDG avid bilateral hilar nodes are likely inflammatory in the setting of immunotherapy. This can be reassessed on follow-up FDG PET-CT. 3. FDG avid bilateral cervical lymph nodes subcentimeter in short axis are likely reactive/inflammatory. 4. Irregular morphology of the right kidney with substantial cortical thinning of the right upper pole and right interpolar region. In the absence of prior studies, this can be further characterized with renal ultrasound. Dictated by Karthik Petersen MD @ 06/07/2024 4:10:21 PM (Electronically Signed)
== END 2024-06-06 13:16 | disposition home or self-care (01) ==
PROVIDERS: Visit Provider Obstetrics & Gynecology Gynecologic Oncology
DX: C50.212 Malignant neoplasm of upper-inner quadrant of left female breast (principal); C54.1 Malignant neoplasm of endometrium
CPT/HCPCS: 78815; A9552

== ENCOUNTER 2024-06-26 10:30 | Outpatient (CLI) | payer MEDICARE, SELFPAY ==
--- NOTE | 2024-06-26 10:45 | CRLHL7_ITS ---
For Patients: As a result of the Century Cures Act, medical imaging exams and procedure reports are released immediately into your electronic medical record. You may view this report before your referring provider. If you have questions, please contact your health care provider. CLINICAL HISTORY: breast cancer, female, endometrial cancer, PET SCAN follow-up COMPARISON: CT PET 06/06/2024 TECHNIQUE: Gonzalez scale and color Doppler images were acquired of the kidneys and urinary bladder. FINDINGS: Scarring involving the right kidney noted with cortical thinning measuring 6.5 millimeters. There is no evidence of hydronephrosis, mass or calculus. The right kidney measures 6.8cm in length and the left kidney measures 10.8cm in length. Left renal cortex measures 1.8 cm. Normal color Doppler imaging of the kidneys. The urinary bladder appears normal. Normal left ureteral jet. There is no evidence of bladder calculi or diverticula. Prevoid bladder volume 163 cc. Postvoid bladder volume 1 cc. IMPRESSION: Chronic scarring right kidney upper pole. No hydronephrosis. No suspicious findings. Dictated by Corbin Combs MD @ 06/26/2024 1:08:06 PM (Electronically Signed)
== END 2024-06-26 10:31 | disposition home or self-care (01) ==
LOC: US 10:31
PROVIDERS: Visit Provider Obstetrics & Gynecology Gynecologic Oncology
DX: C54.1 Malignant neoplasm of endometrium (principal); C50.919 Malignant neoplasm of unspecified site of unspecified female breast
CPT/HCPCS: 76770

== ENCOUNTER 2025-03-05 08:29 | Outpatient (CLI) | payer MEDICARE, SELFPAY ==
--- NOTE | 2025-03-05 09:00 | CRLHL7_ITS ---
For Patients: As a result of the Century Cures Act, medical imaging exams and procedure reports are released immediately into your electronic medical record. You may view this report before your referring provider. If you have questions, please contact your health care provider. Indication: BREAST CANCER FOLLOW UP, HX OF BLOOD CLOTS IN LUNGS IN SEPTEMBER 2023 Technique: CT Chest/Abd/Pelvis 66CC ISOVUE 370 INTRAVENOUS CONTRAST AND WATER PREP Please note that all CT scans at this facility use dose modulation, iterative reconstruction, and/or weight-based dosing when appropriate to reduce radiation dose to as low as reasonably achievable. Comparison: 10/09/2023, 06/06/2024 Findings: In the chest, indwelling Port-A-Cath is present. The visualized thyroid is unremarkable. No enlarged mediastinal, hilar or axillary lymph nodes. No fracture or suspicious osseous lesion. Lungs are clear without infiltrate, edema, effusion or pneumothorax. No suspicious pulmonary nodule. Mild scarring in both lung apices incidentally noted. In the abdomen, the liver is unremarkable. Small stones in the gallbladder. Calcified splenic granulomas. Adrenal glands are normal. No hydronephrosis. Chronic scarring right kidney. Punctate nonobstructing stone right kidney. Normal left kidney. Atherosclerotic changes. No aneurysm. Pancreas is normal. Incidental retroaortic left renal vein. No retroperitoneal or mesenteric adenopathy. 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 No fracture. In the pelvis, the bladder is normal. Postop changes of total hysterectomy and appendectomy. Chronic sigmoid diverticulosis. No diverticulitis. No bowel obstruction or free air. No free fluid. No pelvic or inguinal adenopathy. Impression: No adenopathy in the chest, abdomen or pelvis. Postop changes of left lumpectomy. No evidence of metastatic disease. Chronic sigmoid diverticulosis. Chronic cholelithiasis. Postop changes total hysterectomy and appendectomy. Chronic right renal scarring with punctate nonobstructing stone. Please note that all CT scans at this facility use dose modulation, iterative reconstruction, and/or weight-based dosing when appropriate to reduce radiation dose to as low as reasonably achievable. Dictated by Corbin Combs MD @ 03/05/2025 1:23:55 PM (Electronically Signed)
[2025-03-05 09:03] LABS: Creatinine* 0.9 mg/dL (0.5-1.5); Estimated Glomerular Filt Rate 65 ml/min
== END 2025-03-05 08:30 | disposition home or self-care (01) ==
LOC: CT 08:30
PROVIDERS: PCP Family Medicine; Visit Provider Internal Medicine Hematology & Oncology
DX: C50.212 Malignant neoplasm of upper-inner quadrant of left female breast (principal); I26.09 Other pulmonary embolism with acute cor pulmonale; C54.1 Malignant neoplasm of endometrium; K57.30 Diverticulosis of large intestine without perforation or abscess without bleeding; K80.20 Calculus of gallbladder without cholecystitis without obstruction
CPT/HCPCS: 36415; 71260; 74177; 82565; Q9967